=== PATIENT | female | born 1995 | race Asian ===

== ENCOUNTER 2018-03-06 20:17 | Outpatient (CLI) | payer OTHER | END 2018-03-06 20:55 | disposition short-term general hospital (02) | LOC: AMB 20:17 | DX: M54.89 Other dorsalgia (principal); M54.2 Cervicalgia; V43.52XA Car driver injured in collision with other type car in traffic accident, initial encounter; Y93.89 Activity, other specified; Y92.89 Other specified places as the place of occurrence of the external cause; Z33.1 Pregnant state, incidental | CPT/HCPCS: A0425; A0427 ==